=== PATIENT | male | born 1980 | race African-American/Black ===

== ENCOUNTER 2017-01-19 23:38 | Emergency (ER) | payer MEDICAID ==
[~2017-01-19] VITALS: Ht 198.1 cm; Wt 93.0 kg
[2017-01-20 05:35] VITALS: BP 131/65
[2017-01-20] MEDS ORDERED: KETOROLAC 60MG/2ML VIAL IM STA (07:21)
== END 2017-01-20 08:41 | disposition left against medical advice (07) ==
LOC: ER 23:39
DX: G89.29 Other chronic pain (principal); M54.9 Dorsalgia, unspecified; M25.552 Pain in left hip; M25.561 Pain in right knee; M25.562 Pain in left knee; R10.9 Unspecified abdominal pain; R35.0 Frequency of micturition; F20.9 Schizophrenia, unspecified; Q05.9 Spina bifida, unspecified; Z87.828 Personal history of other (healed) physical injury and trauma
CPT/HCPCS: 99281; Z7610